=== PATIENT | female | born 1940 | race Caucasian/White ===

== ENCOUNTER 2021-05-11 14:29 | Emergency (ER) | payer MEDICARE ==
[2021-05-11 21:26] LABS: BASOPHIL 1.4 % (0-2); EOSINOPHIL 2.4 % (0-7); HCT 40.7 % (37.0-47.0); HGB 13.2 g/dl (12.5-16.0); LYMPHOCYTE 34.5 % (15-48); MCH 31.2 pg (25.0-31.0); MCHC 32.4 g/dL (32.0-36.0); MCV 96.2 fL (78.0-100.0); MONOCYTE 9.8 % (0-12); MPV 9.7 fL (6.0-9.5); NEUTROPHIL 51.8 % (41-80); NRBC 0; PLT 248 K/uL (150-400); RBC 4.23 M/uL (4.20-5.40); RDW 12.7 % (11.5-14.0)
[2021-05-11 21:44] LABS: ALBUMIN 3.5 g/dL (3.4-5.0); BILIRUBIN - TOTAL 0.3 mg/dL (0.2-1.0); BUN/CREAT RATIO (CALC) 24.3 RATIO; CREATININE 0.7 mg/dL (0.51-0.95); GLOBULIN (CALCULATION) 3.2 g/dL; TOTAL PROTEIN 6.7 g/dL (6.4-8.2)
[2021-05-11 22:09] LABS: BILIRUBIN NEGATIVE (NEGATIVE); BLOOD NEGATIVE Ery/uL (NEGATIVE); CLARITY CLEAR (CLEAR); COLOR YELLOW (YELLOW); GLUCOSE (U) NORMAL (NORMAL); LEUKOCYTES NEGATIVE Leu/uL (NEGATIVE); NITRITE NEGATIVE (NEGATIVE); PROTEIN NEGATIVE (NEGATIVE); SPECIFIC GRAVITY 1.015 (1.001-1.030); UROBILINOGEN 0.2 mg/dL (0.2-1.0)
[2021-05-11] MEDS ORDERED: DICYCLOMINE HCL20 MG PO (23:01)
== END 2021-05-11 23:11 | disposition home or self-care (01) ==
LOC: FER 14:29
PROVIDERS: Internal Medicine
DX: R10.84 Generalized abdominal pain (principal); I10 Essential (primary) hypertension; Z20.822 Contact with and (suspected) exposure to COVID-19; Z90.49 Acquired absence of other specified parts of digestive tract; Z91.013 Allergy to seafood
CPT/HCPCS: 36415; 80053; 81003; 85025; J3486; U0002